=== PATIENT | female | born 1990 | race Two or more races ===

== ENCOUNTER 2019-08-13 19:55 | Emergency (ER) | payer OTHER ==
[~2019-08-13] VITALS: Ht 162.6 cm; Wt 55.3 kg
[2019-08-13 19:57] VITALS: BP 118/69
[2019-08-13] MEDS ORDERED: LIDOCAINE-MPF 1%, 5ML INFIL ONE (20:30)
[2019-08-13] MEDS ORDERED: DIPH,PERTUSS(ACELL),TET VAC/PF 0.5 ML IM-VACC ONE ×2 (20:30→21:20)
--- NOTE | 2019-08-13 21:08 | NUR ---
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
[2019-08-13] MEDS ORDERED: LIDOCAINE-MPF 1%, 5ML ONE (21:20)
[2019-08-13] MEDS ORDERED: NEOSPORIN OINT. PKT 1 PACKET ONE ×2 (21:52→22:05)
== END 2019-08-13 22:17 | disposition home or self-care (01) ==
LOC: ED 20:55
DX: S61.214A Laceration without foreign body of right ring finger without damage to nail, initial encounter (principal); X58.XXXA Exposure to other specified factors, initial encounter; Y93.89 Activity, other specified; Y92.098 Other place in other non-institutional residence as the place of occurrence of the external cause; Y99.8 Other external cause status
CPT/HCPCS: 12042; 99285

== ENCOUNTER 2019-08-20 12:31 | Emergency (ER) | payer OTHER ==
[~2019-08-20] VITALS: Ht 162.6 cm; Wt 54.6 kg
[2019-08-20 12:35] VITALS: BP 97/42
--- NOTE | 2019-08-20 13:16 | NUR ---
Patient/Caregiver given discharge instructions and they have confirmed that they understand the instructions. Patient ambulatory with steady gait.
== END 2019-08-20 13:19 ==
LOC: ED 12:59
DX: S61.214D Laceration without foreign body of right ring finger without damage to nail, subsequent encounter (principal); X58.XXXD Exposure to other specified factors, subsequent encounter
CPT/HCPCS: 99281